=== PATIENT | female | born 1945 | race Caucasian/White ===

== ENCOUNTER 2016-12-25 13:00 | Emergency (ER) | payer OTHER ==
[~2016-12-25] VITALS: Ht 162.6 cm; Wt 79.4 kg
--- NOTE | ~2016-12-25 | EKG ---
PATIENT: LIZY WHITLEY UNIT #: [id number] Ventricular Rate: 64 BPM Atrial Rate: 64 BPM P-R Interval: 146 ms QRS Duration: 86 ms Q-T Interval: 442 ms QTC Calculation(Bezet): 455 ms P [place]: 42 degrees Calculated R [place]: -11 degrees Calculated T [place]: 14 degrees Diagnosis Line: Normal sinus rhythm Diagnosis Line: Voltage criteria for left ventricular hypertrophy Diagnosis Line: Abnormal ECG Diagnosis Line: No previous ECGs available Diagnosis Line: Confirmed by TIFFANIE VILLEGAS MD ([id number]) on 12/25/2016 Diagnosis Line: 6:33:16 PM INTERPRETING MD: BAKARI SIMPSON
--- NOTE | ~2016-12-25 | CR72 ---
[facility] A Service of [facility] & [facility] / [facility] RADIOLOGY TEXT RESULTS PATIENT: LIZY WHITLEY LOCATION: [facility] : 47 UNIT #: [id number] AGE: [address]: Gabriele Schmidt MD SEX: F ORDER DR: [id number] [facility] [address] [place], [place] [address] [id number] MR#: [id number] Acc #: [id number] NAME: LIZY WHITLEY. : 1945 SEX: F STUDY DATE/TIME: 12/25/2016 13:25 UNIT: [facility] ROOM: STUDY DESCRIPTION: CR Chest Single View Portable Attending Physician: Gabriele Schmidt M.D. Ordering Physician: Gabriele Schmidt M.D. Primary Care Physician: Primary Care Physician No MEDICAL IMAGING REPORT This report is preliminary unless electronic signature is present EXAM AP portable chest, 12/25/2016 at 13:25 HISTORY Chest pain and elevated blood pressure today. COMPARISON None FINDINGS No acute airspace disease. Mild cardiac enlargement. Pulmonary vascular distribution is normal. There are old left rib fractures. Peripherally calcified breast implants are incidentally noted. Presumed cholecystectomy clips in the right upper quadrant of the abdomen. IMPRESSION 1. Mild cardiac enlargement. No acute chest findings. 2. Old left rib fractures. Dictated by... Missy Toney M.D. THIS IS AN ELECTRONICALLY VERIFIED REPORT Missy Toney M.D. at 12/26/2016 8:56 AM Chantel TD: 12/25/2016 17:10 JOB #: [id number] MEDICAL IMAGING REPORT Page 1 of 1 COPY
[2016-12-25 13:36] LABS: BASOPHIL# 0.1 X10e3 (0-0.3); BASOPHIL% 0.8 % (0-2.5); EOSINOPHIL# 0.1 X10e3 (0-0.7); EOSINOPHIL% 0.6 % (0.0-7.0); HEMATOCRIT 40.1 % (35.0-45.0); HEMOGLOBIN 13.6 gm/dL (12.0-16.0); LYMPHOCYTE# 1.6 X10e3 (1.0-3.5); LYMPHOCYTE% 19.5 % (17.0-45.0); MEAN CELL VOLUME 87.1 FL (83-96); MEAN CORPUSCULAR HEMOGLOBIN 29.6 PG (28-34); MONOCYTE# 0.4 X10e3 (0-1.0); MONOCYTE% 4.4 % (3.0-12.0); NEUTROPHIL# 6.2 X10e3 (1.5-7.1); NEUTROPHIL% 74.7 % (40-75); PLATELET COUNT 376 X10e3 (140-420); WHITE BLOOD COUNT 8.3 X10e3 (4.0-10.5)
[2016-12-25 13:41] LABS: DIFF IND NO
[2016-12-25 13:57] LABS: ALBUMIN SERUM 4.3 g/dL (3.5-5.0); BILIRUBIN, DIRECT 0.1 mg/dL (0.0-0.2); BILIRUBIN,INDIRECT 0.4 mg/dL (0.0-0.9); BILIRUBIN,TOTAL 0.5 mg/dL (0.2-2.0); CALCIUM SERUM 9.2 mg/dL (8.4-10.2); CREATININE SERUM 0.9 mg/dL (0.6-1.4); GLOM FILT RATE Estimated 64.8 mL/min (>60); POTASSIUM 3.6 mmol/L (3.5-5.1)
[2016-12-25 13:58] LABS: POC - CKMB <1.0 ng/mL (0.0-7.9); POC - TROPONIN <0.05 ng/mL (<=0.05)
[2016-12-25 16:14] LABS: POC - CKMB <1.0 ng/mL (0.0-7.9); POC - TROPONIN <0.05 ng/mL (<=0.05)
== END 2016-12-25 19:16 | disposition home or self-care (01) ==
LOC: CED 13:00
PROVIDERS: Emergency Medicine
DX: R07.89 Other chest pain (principal); F41.9 Anxiety disorder, unspecified; Z88.0 Allergy status to penicillin; Z88.6 Allergy status to analgesic agent
CPT/HCPCS: 36415; 71010; 80048; 80076; 82553; 84484; 85025; 93005; 99284